=== PATIENT | male | born 1995 | race Caucasian/White ===

== ENCOUNTER → 2016-11-03 | Outpatient (CLI) | payer BC ==
--- NOTE | 2016-11-03 10:19 | DIAGNOSTIC IMAGING REPORT ---
CHEST 2 VIEWS ROUTINE CLINICAL HISTORY: J45.909 chest pain COMPARISON STUDY: No previous studies for comparison. FINDINGS: The bones soft tissues and hemidiaphragms are normal. The cardiomediastinal silhouette is normal. The lungs are clear. The pulmonary vasculature is normal. IMPRESSION: Negative chest. Electronically signed by: Omar Mccain M.D. 11/03/2016 10:18 AM Dictated Date/Time: 11/03/2016 10:16 AM
== END | disposition home or self-care (01) ==
LOC: C.RAD1850 09:56
PROVIDERS: ATTEND Internal Medicine Pulmonary Disease
DX: J45.909 Unspecified asthma, uncomplicated (principal)